=== PATIENT | female | born 1955 | race Hispanic/Latino ===

== ENCOUNTER 2024-03-28 08:05 | Day surgery (SDC) | payer MEDICARE ==
[~2024-03-28] VITALS: Ht 160 cm; Wt 79.4 kg
[2024-03-28] VITALS (11 sets, daily range): BP systolic 104–188; BP diastolic 54–72; PULSE 55–81; RESP 14–19
[~2024-03-28 08:05] MED LIST: ALPR-409 PO; CLON0.1T PO; CLON0.2T PO; COLC0.6T73 PO; FERS325 PO; FURO40TA5 PO; GABA-529 PO; GLIP2.5T2 PO; HYDR200T75 PO; LACT10SO76 PO; MELA5TAB20 PO; NADO20TA3 PO; NITR0.4T50 SL; PANT40TA54 PO
[2024-03-28] MEDS ORDERED: HYDR-3422 PO (09:33)
[2024-03-28] MEDS ORDERED: PANT40TA54 PO (09:33)
[2024-03-28] MEDS: 0.9%NACL 1000ML 1,000 ML IV ONE (09:42)
[2024-03-28] MEDS ORDERED: PROPOFOL 10 MG/ML 20ML VIAL IV ONE (11:23)
== END 2024-03-28 12:40 | disposition home or self-care (01) ==
LOC: ENDO 08:05 → DAH 08:05 → ENDO 12:40
PROVIDERS: ATTEND Internal Medicine Gastroenterology
DX: K74.60 Unspecified cirrhosis of liver (principal); I85.10 Secondary esophageal varices without bleeding; R93.2 Abnormal findings on diagnostic imaging of liver and biliary tract; R19.7 Diarrhea, unspecified; K76.6 Portal hypertension; K31.89 Other diseases of stomach and duodenum; E78.5 Hyperlipidemia, unspecified; I10 Essential (primary) hypertension; I25.10 Atherosclerotic heart disease of native coronary artery without angina pectoris; E11.9 Type 2 diabetes mellitus without complications; D64.9 Anemia, unspecified; F41.9 Anxiety disorder, unspecified; Z79.899 Other long term (current) drug therapy; Z98.890 Other specified postprocedural states
CPT/HCPCS: 43244; 82948; J7030 ×2; J2704; A4620; A4215; A4223; A7002; A4222; A4221; A4663; A4606; J3490

== ENCOUNTER 2024-05-09 07:02 | Day surgery (SDC) | payer OTHER, MEDICARE ==
[2024-05-09] VITALS (10 sets, daily range): BP systolic 115–189; BP diastolic 45–65; PULSE 58–85; RESP 15–17; TEMP 97.5–98.1
[~2024-05-09] VITALS: Ht 160 cm; Wt 81.6 kg
[~2024-05-09 07:02] MED LIST changes: -ALPR-409 PO; -CLON0.1T PO; -COLC0.6T73 PO; -FERS325 PO; -FURO40TA5 PO; -GABA-529 PO; +HYDR-3422 PO; -HYDR200T75 PO; -LACT10SO76 PO; -MELA5TAB20 PO; -NITR0.4T50 SL
[2024-05-09] MEDS ORDERED: SPIR25TA PO (08:17)
[2024-05-09] MEDS ORDERED: HYDR200T75 PO (08:17)
[2024-05-09] MEDS ORDERED: FURO40TA5 PO (08:17)
[2024-05-09] MEDS ORDERED: BENZ200C53 PO (08:17)
[2024-05-09] MEDS: 0.9%NACL 1000ML 1,000 ML IV ONE (08:21)
[2024-05-09] MEDS ORDERED: proPOFol 10 MG/ML 20ML VIAL IV ONE (09:13)
[2024-05-09] MEDS ORDERED: LIDOCAINE HCL 1% 20 ML VIAL ONE (09:13)
== END 2024-05-09 10:39 | disposition home or self-care (01) ==
LOC: ENDO 07:02 → DAH 07:02 → ENDO 10:39
PROVIDERS: ATTEND Internal Medicine Gastroenterology
DX: K74.69 Other cirrhosis of liver (principal); I85.10 Secondary esophageal varices without bleeding; K29.50 Unspecified chronic gastritis without bleeding; K76.6 Portal hypertension; K31.89 Other diseases of stomach and duodenum; Q44.6 Cystic disease of liver; K22.89 Other specified disease of esophagus; R19.7 Diarrhea, unspecified; I10 Essential (primary) hypertension; I25.10 Atherosclerotic heart disease of native coronary artery without angina pectoris; E11.9 Type 2 diabetes mellitus without complications; E78.5 Hyperlipidemia, unspecified; F41.9 Anxiety disorder, unspecified; Z86.73 Personal history of transient ischemic attack (TIA), and cerebral infarction without residual deficits; Z79.899 Other long term (current) drug therapy; Z87.891 Personal history of nicotine dependence
CPT/HCPCS: 43239; 82948; J7030; J2704; A4620; A4215 ×2; A4223; A4222; A4221; A4663; A4606; J3490

== ENCOUNTER 2025-08-02 07:03 | Day surgery (SDC) | payer OTHER, MEDICAID ==
[~2025-08-02] VITALS: Ht 160 cm; Wt 66.7 kg
[~2025-08-02 07:03] MED LIST changes: +FERS325 PO; +FURO20TA4 PO; -GLIP2.5T2 PO; +GLIP5TAB15 PO; -NADO20TA3 PO
[2025-08-02 07:59] VITALS: BP 134/60; PULSE 81; RESP 20; TEMP 98.1
[2025-08-02] MEDS: 0.9%NACL 1000ML 1,000 ML IV ONE (08:08)
[2025-08-02] MEDS ORDERED: SPIR25TA6 PO (08:12)
[2025-08-02] MEDS ORDERED: FURO40TA5 PO (08:12)
[2025-08-02] MEDS ORDERED: BENZ200C53 PO (08:12)
--- NOTE | 2025-08-02 08:45 | NUR ---
PATIENT DECIDED SHE DIDN'T WANT TO WAIT FOR THE DOCTOR BECAUSE SHE WAS HUNGRY AND HER SUGAR WAS GOING TO DROP. I EXPLAIN TO HER THAT WE COULD COVER WITH GLUCOSE. SHE SHE DIDN'T WANT ANYTHING JUST TAKE EVERY OFF. IV WAS DC'D AND DRESSING APPLIED. PATIENT DISSMISS PER W/C WITH DAUGHTER. INSTRUCTED TO CALL 'S OFFICE TO RESCHEDULE.
== END 2025-08-02 08:45 | disposition home or self-care (01) ==
LOC: ENDO 07:03 → DAH 07:03 → ENDO 08:45
PROVIDERS: ATTEND Internal Medicine Gastroenterology
DX: K74.60 Unspecified cirrhosis of liver (principal); I85.10 Secondary esophageal varices without bleeding; R73.09 Other abnormal glucose; Z53.8 Procedure and treatment not carried out for other reasons
CPT/HCPCS: 82948; J7030